=== PATIENT | female | born 1950 | race Asian ===

== ENCOUNTER 2017-07-03 19:11 | Emergency (ER) | payer OTHER, MEDICARE ==
[2017-07-03 19:48] LABS: PLATELET COUNT 314 10^3/uL (150-400)
[2017-07-03] MEDS ORDERED: HYOSCYAMINE SULFATE 0.125 MG TAB PO ONE (20:16)
[2017-07-03] MEDS ORDERED: MAG HYDROX/AL HYDROX/SIMETH 30 ML UDCUP PO ONE (20:16)
[2017-07-03] MEDS ORDERED: LIDOCAINE 2% VISCOUS 15 ML UDCUP PO ONE (20:16)
--- NOTE | 2017-07-03 20:16 | EDPHY ---
H & P Time Seen by Provider: 07/03/17 19:29 HPI/ROS: CHIEF COMPLAINT: Epigastric pain HISTORY OF PRESENT ILLNESS: Patient is a 67-year-old female who presents emergency department with epigastric pain times 10 days. Pain started after eating. She took Pepcid AC x3 with no relief. Her pain is been constant. It is mild to moderate. She has had no chest pain or shortness of breath. No cough. No fever. No nausea or vomiting. No diarrhea. No change in the color of her stools. REVIEW OF SYSTEMS: My complete review of systems is negative except as mentioned in the HPI. Past Medical/Surgical History: Denies Past surgical history: Denies Social history: The patient does not smoke Smoking Status: Never smoked Physical Exam: Vitals noted GENERAL: Well-appearing, in no acute distress, alert. HEENT: Eyes normal to inspection, normal pharynx, no signs of dehydration. NECK: No thyromegaly, no lymphadenopathy, supple. RESPIRATORY: Clear to auscultation bilaterally, no rales, rhonchi or wheezing. CVS: Regular rate and rhythm, no rubs, murmurs, or gallops. No chest wall tenderness. No rash. ABDOMEN: Soft, epigastric tenderness to palpation with no rebound or guarding, nondistended, no organomegaly. BACK: Normal to inspection, no CVA tenderness. SKIN: Normal color, no rash, warm, dry. No pallor. EXTREMITIES: No pedal edema, no calf tenderness, no Homans sign or cords, no joint swelling. NEURO/PSYCH: Alert and oriented x3, normal mood and affect, normal motor sensory exam. No obvious cranial nerve deficit. Constitutional: Initial Vital Signs Temperature (C) 36.6 C 07/03/17 19:14 Allergies/Adverse Reactions: iodine Allergy (Verified 07/03/17 19:18) Home Medications: Medication Instructions Recorded Atorvastatin Calcium 07/03/17 Diclofenac Sodium 07/03/17 Famotidine [Pepcid AC] 10 mg PO BID 10 Days tablet 07/03/17 Hyoscyamine Sulfate [Hyoscyamine 0.375 mg PO BID 3 Days #3 07/03/17 Sulfate ER] tab.er.12h Levothyroxine 07/03/17 Mbx Soln;Maalox/Diphen/Lido 5 ml PO PRN PRN 3 Days #50 ml 07/03/17 [Maalox/Diphenhydramine/Lido] Medical Decision Making ED Course/Re-evaluation: In the emergency department I discussed possible etiologies with the patient and her . I answered all her questions. IV was placed. Laboratory studies were obtained. EKG was ordered. Patient was given a GI cocktail. Patient's CBC and chemistry unremarkable. LFTs were normal. Lipase negative. Troponin negative. EKG shows normal sinus rhythm, normal rate, normal axis, normal intervals. There are no ST or T-wave abnormalities. EKG is normal as interpreted by me. 2054: I rechecked the patient. She was feeling much better. She had no epigastric tenderness to palpation. I discussed possible etiologies with the patient and her . She was given warnings prior to leaving. She will follow up with primary care. Differential Diagnosis: My differential includes but is not limited to ACS, acute [place], pancreatitis, cholecystitis, cholangitis, GERD, hiatal hernia, peptic ulcer disease - Data Points Laboratory Results: Laboratory Results 07/03/17 19:34 07/03/17 19:34 07/03/17 07/03/17 07/03/17 19:34 19:34 19:34 WBC RBC Hgb Hct MCV MCH MCHC RDW Plt Count MPV Neut % (Auto) Lymph % (Auto) [place] % (Auto) Eos % (Auto) Baso % (Auto) Nucleat RBC Rel Count Absolute Neuts (auto) Absolute Lymphs (auto) Absolute Monos (auto) Absolute Eos (auto) Absolute Basos (auto) Absolute Nucleated RBC Immature Gran % Immature Gran # Sodium 145 mEq/L mEq/L (135-145) Potassium 4.5 mEq/L mEq/L (3.3-5.0) Chloride 103 mEq/L mEq/L (97-110) Carbon Dioxide 27 mEq/l mEq/l (22-31) Anion Gap 15 mEq/L mEq/L (8-16) BUN 14 mg/dL mg/dL (7-23) Creatinine 0.7 mg/dL mg/dL (0.6-1.0) Estimated GFR > 60 Glucose 96 mg/dL mg/dL (70-100) Calcium 9.3 mg/dL mg/dL (8.5-10.4) Total Bilirubin 0.8 mg/dL mg/dL (0.1-1.4) Conjugated Bilirubin 0.4 mg/dL mg/dL (0.0-0.5) Unconjugated Bilirubin 0.4 mg/dL mg/dL (0.0-1.1) AST 35 IU/L IU/L (14-46) ALT 41 IU/L IU/L (9-52) Alkaline Phosphatase 96 IU/L IU/L (38-126) Troponin I < 0.012 ng/mL ng/mL (0.000-0.034) Total Protein 8.7 g/dL H g/dL (6.3-8.2) Albumin 4.6 g/dL g/dL (3.5-5.0) Lipase 124 IU/L IU/L (23-300) Urine Color COLORLESS Urine Appearance CLEAR Urine pH 7.0 (5.0-7.5) Ur Specific [place] 1.002 (1.002-1.030) Urine Protein NEGATIVE (NEGATIVE) Urine Ketones NEGATIVE (NEGATIVE) Urine Blood NEGATIVE (NEGATIVE) Urine Nitrate NEGATIVE (NEGATIVE) Urine Bilirubin NEGATIVE (NEGATIVE) Urine Urobilinogen NEGATIVE EU EU (0.2-1.0) Ur Leukocyte Esterase NEGATIVE (NEGATIVE) Urine Glucose NEGATIVE (NEGATIVE) 07/03/17 19:34 WBC 10.25 10^3/uL H 10^3/uL (3.80-9.50) RBC 4.59 10^6/uL 10^6/uL (4.18-5.33) Hgb 13.7 g/dL g/dL (12.6-16.3) Hct 41.7 % % (38.0-47.0) MCV 90.8 fL fL (81.5-99.8) MCH 29.8 pg pg (27.9-34.1) MCHC 32.9 g/dL g/dL (32.4-36.7) RDW 13.2 % % (11.5-15.2) Plt Count 314 10^3/uL 10^3/uL (150-400) MPV 9.2 fL fL (8.7-11.7) Neut % (Auto) 46.2 % % (39.3-74.2) Lymph % (Auto) 43.6 % % (15.0-45.0) [place] % (Auto) 5.4 % % (4.5-13.0) Eos % (Auto) 3.8 % % (0.6-7.6) Baso % (Auto) 0.7 % % (0.3-1.7) Nucleat RBC Rel Count 0.0 % % (0.0-0.2) Absolute Neuts (auto) 4.74 10^3/uL 10^3/uL (1.70-6.50) Absolute Lymphs (auto) 4.47 10^3/uL H 10^3/uL (1.00-3.00) Absolute Monos (auto) 0.55 10^3/uL 10^3/uL (0.30-0.80) Absolute Eos (auto) 0.39 10^3/uL 10^3/uL (0.03-0.40) Absolute Basos (auto) 0.07 10^3/uL 10^3/uL (0.02-0.10) Absolute Nucleated RBC 0.00 10^3/uL 10^3/uL (0-0.01) Immature Gran % 0.3 % % (0.0-1.1) Immature Gran # 0.03 10^3/uL 10^3/uL (0.00-0.10) Sodium Potassium Chloride Carbon Dioxide Anion Gap BUN Creatinine Estimated GFR Glucose Calcium Total Bilirubin Conjugated Bilirubin Unconjugated Bilirubin AST ALT Alkaline Phosphatase Troponin I Total Protein Albumin Lipase Urine Color Urine Appearance Urine pH Ur Specific [place] Urine Protein Urine Ketones Urine Blood Urine Nitrate Urine Bilirubin Urine Urobilinogen Ur Leukocyte Esterase Urine Glucose Medications Given: Discontinued Medications Al Hydroxide/Mg Hydroxide (Maalox Susp) 30 ml PO ONCE ONE Stop: 07/03/17 20:17 Last Admin: 07/03/17 20:44 Dose: 30 ml Hyoscyamine Sulfate (Levsin, Hyomax-Sl) 0.25 mg PO ONCE ONE Stop: 07/03/17 20:17 Last Admin: 07/03/17 20:44 Dose: 0.25 mg Lidocaine (Lidocaine 2% Viscous) 15 ml PO ONCE ONE Stop: 07/03/17 20:17 Last Admin: 07/03/17 20:44 Dose: 15 ml Departure - Departure Disposition: Home, Routine, Self-Care Clinical Impression: Abdominal pain Qualifiers: Abdominal location: epigastric Qualified Code(s): R10.13 - Epigastric pain Condition: Good Instructions: Acute Abdominal Pain (ED) Additional Instructions: Return with increasing pain, fever, vomiting or any other concerns. Referrals: Li Gaming MD [Medical Doctor] - 5-7 days, call for appt. Prescriptions: Famotidine [Pepcid AC] 10 mg PO BID 10 Days tablet Mbx Soln;Maalox/Diphen/Lido [Maalox/Diphenhydramine/Lido] 5 ml PO PRN PRN 3 Days #50 ml PRN Reason: Pain
--- NOTE | 2017-07-03 20:41 | CPEKG ---
Heart Rate: 62 RR Interval: 968 P-R Interval: 192 QRSD Interval: 82 QT Interval: 396 QTC Interval: 402 P [place]: 16 QRS [place]: 37 T Wave [place]: -6 EKG Severity - NORMAL ECG - EKG Impression: SINUS RHYTHM Electronically Signed By: Hayden Springer 05-Jul-2017 06:10:42
[2017-07-03 21:34] VITALS: BP 170/81
== END 2017-07-03 21:34 | disposition home or self-care (01) ==
DX: R10.13 Epigastric pain (principal)